=== PATIENT | female | born 1955 | race Caucasian/White ===

== ENCOUNTER 2021-01-17 12:45 | Outpatient (REF) | payer BC, SELFPAY ==
[2021-01-17 13:17] LABS: MANUAL DIFF FLAG NO
[2021-01-17 13:23] LABS: Basophils Percent Auto 0.7 % (0-2); Eosinophils Absolute Auto 0.1 X10*3/uL (0.0-0.4); Eosinophils Percent Auto 1.9 % (0-4); Hematocrit 40.5 % (37-47); Hemoglobin 13.3 g/dl (12.0-16.0); Imm Gran Abs Auto 0.01 X10*3/uL (0.00-0.03); Imm Gran Pct Auto 0.2 % (0.0-0.4); Lymphocytes Absolute Auto 1.9 X10*3/uL (1.2-4.9); Lymphocytes Percent Auto 33.8 % (20-40); Mean Corpuscular HGB Conc 32.8 g/dl (31.0-35.0); Mean Corpuscular Hemoglobin 30.4 pg (27.0-33.0); Mean Corpuscular Volume 92.7 fL (80-98); Mean Platelet Volume 10.7 fL (9.4-12.3); Monocytes Absolute Auto 0.5 X10*3/uL (0.1-1.2); Monocytes Percent Auto 8.8 % (2-11); Neutrophils Absolute Auto 3.1 X10*3/uL (2.0-8.3); Neutrophils Percent Auto 54.6 % (45-73); Platelet Count 227 X10*3/uL (160-400); Red Blood Count 4.37 X10*6/uL (4.20-5.50); Red Cell Distribution Width 13.1 % (11.0-16.0); White Blood Count 5.7 X10*3/uL (4.8-10.8)
[2021-01-17 13:48] LABS: Anion Gap 13 (12-20); Blood Urea Nitrogen 17 mg/dL (9-16); Calcium 9.9 mg/dL (8.4-10.2); Carbon Dioxide 27 mmol/L (22-29); Chloride 105 mmol/L (96-108); Estimated Glomerular Filt Rate > 60; Glucose Random 105 mg/dL (60-115); Potassium 4.4 mmol/L (3.3-5.1); Sodium 141 mmol/L (135-145)
[2021-01-17 13:59] LABS: Valproate 29.8 mcg/mL (50.0-100.0)
== END 2021-01-17 12:46 | disposition home or self-care (01) ==
LOC: HO.LAB 12:45
PROVIDERS: PCP Internal Medicine; Visit Provider Psychiatry & Neurology Neurology
DX: R56.9 Unspecified convulsions (principal); Z79.899 Other long term (current) drug therapy
CPT/HCPCS: 36415; 80048; 80164; 85025

== ENCOUNTER 2023-01-22 12:35 | Outpatient (REF) | payer MEDICARE, SELFPAY ==
[2023-01-22 15:18] LABS: Valproate 24.5 mcg/mL (50.0-100.0)
== END 2023-01-22 12:36 | disposition home or self-care (01) ==
LOC: HO.LAB 12:35
PROVIDERS: PCP Internal Medicine; Visit Provider Psychiatry & Neurology Neurology
DX: R56.9 Unspecified convulsions (principal); Z79.899 Other long term (current) drug therapy
CPT/HCPCS: 36415; 80164; 80184

== ENCOUNTER 2025-01-21 12:27 | Outpatient (AMB) | payer MEDICARE, SELFPAY ==
--- OUTSIDE RECORDS SUMMARY | 2025-01-15 23:59 | XMS_ITS | Continuity of Care Document ---
Author Organization [facility] Address [address] [place] [address], [address] [place] [address]- Care Team Providers Care Phlebotomist Lab Assistant Name Role Phone Emma WHITNEY, Mayra Huang Primary Care Phys[place] [facility] [place]): [place]/25 [facility] [address] [place] [address] Drive [address] [place], [place] [address] Attending Physician: Joe Clark Admitting Physician: Joe Clark Referring Physician: AdmtrJoe Encounter Type: Triage Allergies, Adverse Reactions, Alerts No Known Allergies Medications Ambien 5 mg oral tablet 1 tablet = 5 mg, By Mouth, Daily at bedtime, PRN as needed for insomnia, 0 Refills, Maintenance, 12/16/21 9:18:00 AM EDT, Tablet, Partial fill upon patient request if the prescription is for a scheduleII opioid drug. Start Date: 12/16/21 Status: Ordered Repeat number: 1 calcium (as carbonate) 500 mg oral tablet, chewable 1 tablet = 500 mg, Daily, 0 Refills, Maintenance, 12/28/21 2:02:00 PM EDT, Partial fill upon patientrequest if the prescription is for a schedule II opioid drug. Start Date: 12/28/21 Status: Ordered Repeat number: 1 Depakote Capsule See Instructions, By Mouth 3 times a day, Refills 0, Tot. Refills 0, 01/24/08 1:45:19 AM EDT Start Date: 01/24/08 Status: Ordered Repeat number: 1 FLUoxetine 10 mg oral capsule 10 mg, 1, capsule, By Mouth, Daily, Refills 0, Maintenance, 12/16/24 1:32:00 PM EDT, Partial fill upon patient request if the prescription is for a schedule II opioid drug. Start Date: 12/16/24 Status: Ordered Repeat number: 1 Phenobarbital = 30 mg, By Mouth, 2 times a day, 0 Refills, 01/24/08 1:46:20 AM EDT Start Date: 01/24/08 Status: Ordered Repeat number: 1 Ventolin HFA 108 mcg/inh inhalation aerosol with adapter 2 puffs, Inhalation, 4 times a day, PRN for wheezing, # 18 Gm, 6 Refills, Maintenance, 05/07/23 5:38:00 PM EST, Aerosol, [id number], Partial fill upon patient request if the prescription is for a schedule II opioid drug., 153, cm, 04/16/23 16:41:00 EDT, Height, 67.5, kg, 08/24/2311:14:00 EST, Dry Weight Start Date: 05/07/23 Status: Ordered Quantity: 18.0 Unit: g Repeat number: 7 Vitamin A & D Topically, 4 times a day, 0 Refills, Maintenance, 12/28/21 2:03:00 PM EDT, Partial fill upon patientrequest if the prescription is for a schedule II opioid drug. Start Date: 12/28/21 Status: Ordered Repeat number: 1 Problem List Condition Confirmation Course Effective Dates Status Health [facility] Informant Former heavy cigarette smoker (1ppd x 40 yrs; 40 pyh - quit age 57) Confirmed Active Heartburn Confirmed Active History of seizures Confirmed Active Multiple lung nodules on CT Confirmed 08/11/20 Active Social History Social History Type Response Smoking Status Former smoker, quit more than 30 days ago entered on: 12/16/24 Sex Sex Representation Female (finding) Patient Care team information Care Team Personnel Name: Eloina Mata NP Position: [facility] PCO Associate Professional Member Role: Primary Care Nurse Name: Mayra Carter MD Position: [facility] Outreach Member Role: PCP Address: [address] [place] [address] Telecom: Name: Clarence Baker RN Position: S RN Member Role: Primary Care Nurse Care Team Related Persons Name: EDWIN LIGHT Name: MARY LIGHT Insurance Providers Guarantor name: ROXANNE LIGHT [facility] Plan Information #: 1 Payer: [facility] PPO Payer Identifier: NA Member Number: [id number] Group Number: [id number] Subscriber Identifier: [id number] Relationship to Subscriber: self Coverage Type: Medicare PPO Coverage Verification Date: NA Telecom: Address:
--- NOTE | 2025-01-21 12:35 | MHC.OFFVIS ---
Intake Visit Reasons: 6 month f/u Allergies No Known Allergies Allergy (Verified 01/21/25 12:35) Medication List - Last Reconciled 01/21/25 by Trinidad Rossi CNP divalproex 250 mg PO BID fluoxetine 20 mg PO DAILY lorazepam 0.5 mg PO BEDTIME PRN phenobarbital 64.8 mg PO BEDTIME zolpidem 5 - 10 mg PO BEDTIME PRN HPI Comments Details: She was doing okay. No seizures or spells. Sleep was okay with zolpidem. No medication side effects. Stress was still there. Mood was better with fluoxetine. She has not needed to use lorazepam recently. She has been on fluoxetine twice in the past for anxiety which helped. 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 Previously had some lung inflammation that was biopsied. [facility] Medical History (Updated 01/21/25 @ 12:38 by Trinidad Rossi CNP) Anxiety Insomnia Osteoporosis Seizures Review of Systems Const Denies chills, Denies daytime sleepiness, Reports difficulty sleeping, Denies fatigue, Denies fever(s), Denies frequent falls, Denies headache(s), Denies increased appetite, Denies poor appetite, Denies snoring, Denies weakness, Denies weight gain and Denies weight loss Eyes Denies loss of vision ENT Denies vertigo, Denies dizziness, Denies headache(s) and Denies neck pain Card Denies chest pain at rest, Denies chest pain with activity, Denies syncope, Denies leg edema, Denies palpitations, Denies dyspnea and Denies dyspnea on exertion Resp Denies cough, Denies dyspnea, Denies dyspnea on exertion and Denies snoring GI Denies abdominal pain, Denies constipation, Denies heartburn, Denies diarrhea and Denies nausea Denies urinary frequency, Denies urinary incontinence and Denies urinary urgency Musc Denies abnormal gait, Denies back pain, Denies myalgias, Denies arthralgias, Denies neck pain, Denies numbness and Denies tingling Neuro Denies abnormal gait, Denies vertigo, Denies dizziness, Denies syncope, Denies frequent falls, Denies headache(s), Denies lack of coordination, Denies loss of vision, Denies memory loss, Denies numbness, Denies Other visual disturbances, Denies restless legs, Denies seizure-like activity, Denies tingling, Denies paresthesias, Denies tremor(s) and Denies weakness Psych Denies anxiety, Denies depression, Denies auditory hallucinations, Denies memory loss and Denies visual hallucinations Endo Denies fatigue and Denies palpitations Physical Exam Const Other: General Appearance:? normal, in no acute distress. Heart:? S1, S2 normal, no murmurs. Lungs:? clear anteriorly and posteriorly. Musculoskeletal:? normal. Extremities:? no edema. Psych:? alert, oriented, cognitive function intact, cooperative with exam. Neuro Other: Abnormal Neurological Findings:?none.? Mental Status: alert and oriented X 3. Normal attention, orientation, memory, and affect. Cranial Nerves: Pupils are equal, round, and reactive to light. External ocular muscles are intact. Visual cee are full, no ptosis. Face is symmetrical, no facial weakness or droop. Facial sensations are normal. Tongue protrudes in midline. Palate elevates symmetrically. Shoulder shrugging is normal Motor Examination: Normal muscle tone, bulk and strength. No atrophy or fasciculations. No drift of the extended upper extremities. DTR 2+. Plantars are flexor. Sensory Exam: Normal light touch, temperature, pinprick, vibration, and joint-position sensations. Rhomberg sign is absent. Coordination: No ataxia. No titubation. [id number], [id number] test, and rapid alternating movements were normal. Gait Exam: Within normal limits. Cerebellar Signs: [id number] is okay. Extrapyramidal System: No tremor, rigidity with normal facial expressions. No bradykinesia. No bradyphrenia. Normal arm swing and posture. No propulsion or retropulsion. Speech: Normal. Assessment & Plan Assessment & Plan (1) Convulsion: Code(s): R56.9 - Unspecified convulsions Category: Medical Qualifiers: Convulsion type: unspecified Qualified Code(s): R56.9 - Unspecified convulsions Plan: Continue Depakote 250mg 1 tablet twice a day. Continue phenobarbital 64.8mg 1 tablet at bedtime. (2) Insomnia: Code(s): G47.00 - Insomnia, unspecified Category: Medical Qualifiers: Insomnia type: unspecified Qualified Code(s): G47.00 - Insomnia, unspecified Plan: Continue zolpidem 10mg 1/2-1 tablet at bedtime as needed. (3) Anxiety: Code(s): F41.9 - Anxiety disorder, unspecified Category: Medical Plan: Continue fluoxetine 20mg 1 capsule daily. Continue lorazepam 0.5mg 1 tablet as needed for anxiety. Medications: New zolpidem 5 - 10 mg (0.5 - 1 x 10 mg) PO BEDTIME PRN 90 tabs 1RF sleep 90 days divalproex 250 mg PO BID 180 tabs 1RF 90 days fluoxetine 20 mg PO DAILY 90 caps 1RF 90 days phenobarbital 64.8 mg PO BEDTIME 90 tabs 1RF 90 days Discontinued fluoxetine Discontinued Reason: Order 20 mg PO DAILY Coding Level of Care Code Est Pt Level 4 (16395) Diagnoses Convulsions, unspecified convulsion type R56.9 Convulsion type: unspecified Insomnia, unspecified type G47.00 Insomnia type: unspecified Anxiety F41.9
== END 2025-01-21 12:52 | disposition home or self-care (01) ==
LOC: HO.HSM 12:27
PROVIDERS: PCP Internal Medicine; Referring Provider Internal Medicine; Visit Provider Registered Nurse
DX: R56.9 Unspecified convulsions (principal); G47.00 Insomnia, unspecified; F41.9 Anxiety disorder, unspecified
CPT/HCPCS: 99214

== ENCOUNTER → 2025-01-21 12:27 | Outpatient (BNVA) | payer MEDICARE, SELFPAY | PROVIDERS: PCP Internal Medicine; Referring Provider Internal Medicine; Visit Provider Registered Nurse | DX: G47.00 Insomnia, unspecified (principal); R56.9 Unspecified convulsions; F41.9 Anxiety disorder, unspecified | CPT/HCPCS: 99212 ==